=== PATIENT | male | born 2000 | race Caucasian/White ===

== ENCOUNTER 2024-09-14 15:59 | Emergency (ER) | payer BC ==
[2024-09-14 17:25] VITALS: BP 112/66; PULSE 73
== END 2024-09-14 17:19 | disposition home or self-care (01) ==
LOC: DL.ED 15:59
DX: S61.216A Laceration without foreign body of right little finger without damage to nail, initial encounter (principal); F17.210 Nicotine dependence, cigarettes, uncomplicated; W26.8XXA Contact with other sharp object(s), not elsewhere classified, initial encounter
CPT/HCPCS: 12002; 99282

== ENCOUNTER 2025-06-15 12:58 | Emergency (ER) | payer BC ==
[2025-06-15] MEDS: Take Home: Amoxicillin/Clavulanate K 875-125 MG Tab, 6 Tab Pack PO ONE (14:39)
[2025-06-15 14:40] VITALS: BP 106/65; PULSE 73
== END 2025-06-15 14:50 | disposition home or self-care (01) ==
LOC: DL.ED 12:58
DX: J01.90 Acute sinusitis, unspecified (principal)
CPT/HCPCS: 87081; 87430; 99283; A9270-GY